=== PATIENT | male | born 1995 | race Caucasian/White ===

== ENCOUNTER 2016-12-05 21:55 | Emergency (ER) | payer SELFPAY ==
[~2016-12-05] VITALS: Ht 167.6 cm; Wt 56.2 kg
[2016-12-05 23:56] VITALS: BP 128/79
== END 2016-12-05 23:59 | disposition home or self-care (01) ==
LOC: ED 21:55
DX: R10.9 Unspecified abdominal pain (principal)

== ENCOUNTER 2017-05-12 18:01 | Emergency (ER) | payer OTHER ==
[~2017-05-12] VITALS: Ht 167.6 cm; Wt 56.4 kg
[2017-05-12 18:56] VITALS: Ht 167.6 cm; Wt 56.4 kg
[2017-05-12 23:08] VITALS: BP 101/70
== END 2017-05-12 23:08 | disposition home or self-care (01) ==
LOC: ED 18:01
DX: J06.9 Acute upper respiratory infection, unspecified (principal); H60.92 Unspecified otitis externa, left ear